=== PATIENT | female | born 1985 | race Caucasian/White ===

== ENCOUNTER 2020-10-20 19:40 | Emergency (ER) | payer OTHER, SELFPAY ==
[2020-10-20 19:57] VITALS: BP 146/96; PULSE 100; RESP 17; TEMP 36.4; O2SAT 100
--- NOTE | 2020-10-20 20:37 | ED.URI ---
HPI - URI/Sore Throat General Chief Complaint: Upper Respiratory Infection Stated Complaint: earache, ST Time Seen by Provider: 10/20/20 20:14 Source: patient Mode of arrival: ambulatory Limitations: no limitations History of Present Illness HPI Narrative: Patient is a 35-year-old female who presents complaining of sore throat and bilateral ear pain x2 to 3 days. She reports her right ear is more painful than left. She denies taking sztn-dvu-fnacylp medications for pain. She denies fever, cough, congestion, rhinorrhea, chills or body aches. She denies known exposure to Covid. She is not vaccinated Covid at this time. Patient denies chest pain or shortness of breath. Related Data Allergies Allergy/AdvReac Type Severity Reaction Status Date / Time aspirin Allergy Unknown Verified 02/23/15 16:08 strawberry Allergy Unknown Unverified 02/23/15 16:08 Review of Systems Review of Systems: Narrative: CONSTITUTIONAL: Denies fever, chills, or sweats. EYES: Denies visual changes, redness, or discharge. ENT: Denies rhinorrhea, congestion, reports sore throat and otalgia. CARDIOVASCULAR: Denies chest pain, palpitations, or edema. RESPIRATORY: Denies cough or dyspnea. GASTROINTESTINAL: Denies abdominal pain, nausea, vomiting, or diarrhea. GENITOURINARY: Denies dysuria or hematuria. SKIN: Denies rash or itching. MUSCULOSKELETAL: Denies back pain, joint pain, or myalgia. NEUROLOGIC: Denies headache, numbness, dizziness, or weakness. PSYCHIATRIC: Denies anxiety or depression. [facility] Past Medical History Medical History Asthma Bronchitis Gastrointestinal ulcer Surgical History Surgical History H/O: Family History Family History (Updated 10/20/20 @ 20:39 by CHRISTINA Wood) Other No significant family history Social History Social History (Updated 10/20/20 @ 20:41 by CHRISTINA Wood) Smoking status: Never smoker Alcohol intake: current Alcohol use details: Occasional Substance use: never Living arrangements: with family Gender identity (if verbalized by the patient): Female Exam Narrative: Exam Narrative: GENERAL: Well-appearing, well-nourished, and in no acute distress. HEAD: Normocephalic, atraumatic. EYES: EOMI. No redness or drainage. Conjunctiva are normal. ENT: Mucous membranes pink and moist. Nares clear. No rhinorrhea. Left TM normal, right TM bulging and injected. Throat mild erythema without edema or exudate. Uvula midline. NECK: AROM. Supple. No lymphadenopathy. CHEST: No respiratory distress. Clear to auscultation. HEART: Regular rate and rhythm. EXTREMITIES: Normal range of motion. No edema. SKIN: Warm, dry, no rash. NEURO: No focal deficits. Alert and oriented x3. Gait steady. PSYCH: Normal affect. No signs of depression or anxiety. Course Vital Signs Vital signs: Vital Signs Temperature 36.4 C 10/20/20 19:57 Pulse Rate 100 10/20/20 19:57 Respiratory Rate 17 10/20/20 19:57 Blood Pressure 146/96 H 10/20/20 19:57 Pulse Oximetry 10/20/20 19:57 Temperature 36.4 C 10/20/20 19:57 Pulse Rate 100 10/20/20 19:57 Respiratory Rate 17 10/20/20 19:57 Blood Pressure 146/96 H 10/20/20 19:57 Pulse Oximetry 100 10/20/20 19:57 Reviewed-patient is informed that they may have pre-hypertension or hypertension based on a blood pressure reading. I recommend the patient call the primary care provider listed on their discharge instructions or a physician of their choice this week to arrange follow-up for further evaluation of possible pre-hypertension or hypertension. MDM - URI/Sore Throat MDM Narrative Medical decision making narrative: Patient has right otitis media. Discussed with patient antibiotic treatment. Discussed pain relief. Discussed follow-up with PCP. Patient agrees with plan of care. Patient is stable for discha
[2020-10-20 21:09] VITALS: BP 148/86; PULSE 84; RESP 16; TEMP 36.3; O2SAT 98
== END 2020-10-20 21:10 | disposition home or self-care (01) ==
PROVIDERS: Emergency Provider Nurse Practitioner
DX: H66.91 Otitis media, unspecified, right ear (principal); J45.909 Unspecified asthma, uncomplicated
CPT/HCPCS: 87880; 99283

== ENCOUNTER 2020-11-24 17:35 | Emergency (ER) | payer OTHER, SELFPAY ==
--- NOTE | ~2020-11-24 | XR_ITS ---
EXAMINATION: XR knee RT min 4V EXAM DATE: 11/24/2020 17:57 INDICATION: Initial encounter following injury, with pain of the right knee. TECHNIQUE: Right knee frontal, crosstable lateral, orthogonal oblique projections for interpretation . There is no prior study for comparison. FINDINGS: No evidence osteochondral defect or joint body in the right knee joint. There are no acut e fractures or dislocations identified. There is no subcutaneous gas. There is small joint effusion . There is very thin needlelike foreign body in the right calf subcutaneous fat or musculature. The re is mild to moderate medial tibiofemoral compartment primary osteoarthritis, less at the other comp artments. IMPRESSION: 1. XR knee RT min 4V exam without acute osseous findings. 2. Small needlelike foreign body right calf. 3. Small joint effusion. 4. Mild to moderate osteoarthritis. Reviewed, dictated and finalized at location A.
[2020-11-24 18:17] VITALS: BP 108/87; PULSE 67; RESP 16; TEMP 36.7; O2SAT 99
--- NOTE | 2020-11-24 20:14 | ED.LOWEXIN ---
HPI - Extremity Injury (Lower) General Chief Complaint: Extremity Injury, Lower Stated Complaint: R KNEE PAIN S/P FALL OFF STEPSTOOL Time Seen by Provider: 11/24/20 19:34 Source: patient Mode of arrival: ambulatory Limitations: no limitations History of Present Illness HPI Narrative: This is a 35 year old female that presents to the ER for right knee pain after an injury today. Reports she was on a two-step step ladder. She was stepping off and missed the bottom step. Reports this caused pain in the right knee and she felt a pop in the knee. Reports pain to the area since. Denies decreased ROM or numbness. Related Data Allergies Allergy/AdvReac Type Severity Reaction Status Date / Time strawberry Allergy Unknown Anaphylactic Unverified 11/24/20 18:57 Shock bee venom protein (honey bee) Allergy Anaphylactic Verified 11/24/20 18:57 Shock aspirin AdvReac Unknown Gastrointestinal Verified 11/24/20 18:57 Upset Review of Systems Review of Systems: Narrative: CONSTITUTIONAL: Denies fever MUSCULOSKELETAL: Reports joint pain, and myalgia. NEUROLOGIC: Denies numbness, or weakness. All systems reviewed & are unremarkable except as noted in HPI and below PMFSH Past Medical History Medical History Asthma Bronchitis Gastrointestinal ulcer Surgical History Surgical History H/O: Family History Family History (Updated 10/20/20 @ 20:39 by CHRISTINA Wood) Other No significant family history Social History Social History (Updated 10/20/20 @ 20:41 by CHRISTINA Wood) Smoking status: Never smoker Alcohol intake: current Alcohol use details: Occasional Substance use: never Gender identity (if verbalized by the patient): Female Exam Narrative: Exam Narrative: GENERAL: Well-appearing, well-nourished, and in no acute distress. HEAD: Normocephalic, atraumatic. EYES: EOMI. EXTREMITIES: Normal range of motion. No edema, erythema or obvious deformity. Normal DP pulses. Normal sensation SKIN: Warm, dry, no rash. NEURO: No focal deficits. Alert and oriented x3. PSYCH: Normal mood and affect Course Vital Signs Vital signs: Vital Signs Temperature 98.1 F 11/24/20 18:17 Pulse Rate 67 11/24/20 18:17 Respiratory Rate 16 11/24/20 18:17 Blood Pressure 108/87 11/24/20 18:17 Pulse Oximetry 99 11/24/20 18:17 Temperature 98.1 F 11/24/20 18:17 Pulse Rate 67 11/24/20 18:17 Respiratory Rate 16 11/24/20 18:17 Blood Pressure 108/87 11/24/20 18:17 Pulse Oximetry 99 11/24/20 18:17 MDM - Extremity Injury (Lower) MDM Narrative Medical decision making narrative: Patient presents the emergency department for right knee pain after an injury today. Reports feeling a pop in the knee. Right knee x-rays without acute osseous abnormalities. Does show small joint effusion. She has a small needlelike foreign body in the right calf. There is no laceration to this area. There is no overlying redness of the area. Patient was updated on case findings. Instructed on care of the sprain. She is to follow-up with orthopedics. She was given warnings to return to the ER Imaging Data Radiologist's impression: ITS Impressions Knee X-Ray 11/24/20 18:00 IMPRESSION: 1. XR knee RT min 4V exam without acute osseous findings. 2. Small needlelike foreign body right calf. 3. Small joint effusion. 4. Mild to moderate osteoarthritis. Critical Care Time Critical Care Time Critical Care Time: No Discharge Plan Discharge Clinical Impression: Right knee sprain Qualifiers: Encounter type: initial encounter Involved ligament of knee: unspecified ligament Qualified Code(s): S83.91XA - Sprain of unspecified site of right knee, initial encounter Patient Disposition: Home, Self-Care Condition: Stable Instructions: Knee Sprain (ED)
[2020-11-24 21:25] VITALS: BP 115/83; PULSE 74; RESP 16; O2SAT 100
== END 2020-11-24 21:26 | disposition home or self-care (01) ==
PROVIDERS: Emergency Provider Emergency Medicine
DX: S83.91XA Sprain of unspecified site of right knee, initial encounter (principal); W11.XXXA Fall on and from ladder, initial encounter
CPT/HCPCS: 73564; 99283

== ENCOUNTER 2021-01-17 11:20 | Emergency (ER) | payer OTHER, SELFPAY ==
[2021-01-17 11:29] VITALS: BP 154/86; PULSE 64; RESP 16; TEMP 36.2; O2SAT 100
--- NOTE | 2021-01-17 11:39 | ED.EAR ---
HPI - Ear Problem General Chief complaint: Ear Stated complaint: ear pain Time Seen by Provider: 01/17/21 11:31 Source: patient and RN notes reviewed Mode of arrival: ambulatory Limitations: no limitations History of Present Illness HPI Narrative: Patient presents today with a 1 week history of right ear pain. Denies decreased hearing, drainage, cough, congestion, rhinorrhea, sore throat, fever. She currently rates her pain 6/10 and has been taking Tylenol and Aleve with some relief. She has also been using jpve-dia-kexbvuz eardrops and sweet oil topically without much relief. MD Complaint: ear pain Related Data Allergies Allergy/AdvReac Type Severity Reaction Status Date / Time strawberry Allergy Unknown Anaphylactic Unverified 11/24/20 18:57 Shock bee venom protein (honey bee) Allergy Anaphylactic Verified 11/24/20 18:57 Shock aspirin AdvReac Unknown Gastrointestinal Verified 11/24/20 18:57 Upset Review of Systems Review of Systems: CONSTITUTIONAL: Denies body aches, fever, chills, or sweats. EYES: Denies visual changes, redness, or discharge. ENT: Denies rhinorrhea, congestion, sore throat. + Right ear pain CARDIOVASCULAR: Denies chest pain, palpitations, or edema. RESPIRATORY: Denies cough or dyspnea. GASTROINTESTINAL: Denies abdominal pain, nausea, vomiting, or diarrhea. GENITOURINARY: Denies dysuria or hematuria. SKIN: Denies rash, itching, or wounds. MUSCULOSKELETAL: Denies back pain, joint pain, or myalgia. NEUROLOGIC: Denies headache, numbness, tingling, or weakness. PSYCH: Denies depression or anxiety. [facility] Past Medical History Medical History Asthma Bronchitis Gastrointestinal ulcer Surgical History Surgical History H/O: Family History Family History Other No significant family history Social History Social History Smoking status: Never smoker Alcohol intake: current Alcohol use details: Occasional Substance use: never Gender identity (if verbalized by the patient): Female Comments At time of signature, I have reviewed and agree with nursing past medical, surgical, social and family history unless otherwise noted. Please see nursing chart for further information. There is no relevant family history pertinent to the presenting complaint Exam Narrative: GENERAL: Well-appearing, well-nourished, and in no acute distress. HEAD: Normocephalic, atraumatic. EYES: EOMI. No redness or drainage. Conjunctivae normal. ENT: Mucous membranes pink and moist. Nares clear. No rhinorrhea. TMs normal bilaterally. Throat normal. Uvula midline. NECK: Normal AROM. Supple. No lymphadenopathy. CHEST: No respiratory distress. Clear to auscultation. HEART: Regular rate and rhythm. No murmur appreciated. Normal peripheral pulses. EXTREMITIES: Normal range of motion. No edema. SKIN: Warm, dry, no rash. Capillary refill normal. Normal skin turgor. NEURO: No focal deficits. Alert and oriented x3. Gait steady. PSYCH: Normal affect. No signs of depression or anxiety. Course Vital Signs Vital signs: Vital Signs Temperature 97.2 F L 01/17/21 11:29 Pulse Rate 64 01/17/21 11:29 Respiratory Rate 16 01/17/21 11:29 Blood Pressure 154/86 H 01/17/21 11:29 Pulse Oximetry 100 01/17/21 11:29 Temperature 97.2 F L 01/17/21 11:29 Pulse Rate 64 01/17/21 11:29 Respiratory Rate 16 01/17/21 11:29 Blood Pressure 154/86 H 01/17/21 11:29 Pulse Oximetry 100 01/17/21 11:29 Reviewed. Pt has been instructed to follow up with her PCP regarding her elevated blood pressure today. Medical Decision Making Differential Diagnosis Differential Diagnosis: Otitis media, otitis externa, ruptured TM, serous otitis, eustachian tube
== END 2021-01-17 12:02 | disposition home or self-care (01) ==
PROVIDERS: Emergency Provider Nurse Practitioner
DX: H69.91 Unspecified Eustachian tube disorder, right ear (principal); J45.909 Unspecified asthma, uncomplicated
CPT/HCPCS: 99211; G0463

== ENCOUNTER 2022-02-18 09:00 | Outpatient (CLI) | payer OTHER, SELFPAY ==
[2022-02-18 09:27] LABS: Basophils Percent Auto 0.4 % (0.2-1.2); Eosinophils Absolute Auto 0.3 K/mm3 (0-0.3); Eosinophils Percent Auto 3.9 % (0-4.4); Hematocrit 37.8 % (37.0-47.0); Hemoglobin 12.2 g/dL (12.0-15.0); Immature Granulocyte Absolute 0.04 K/mm3 (0.00-0.031); Immature Granulocyte Percent A 0.5 % (0-0.5); Lymphocytes Absolute Auto 1.27 K/mm3 (0.9-3.2); Lymphocytes Percent Auto 17.3 % (18.3-44.2); Mean Corpuscular HGB Conc 32.3 g/dl (32-36); Mean Corpuscular Hemoglobin 28.7 pg (26-34); Mean Corpuscular Volume 88.9 fl (80-100); Monocytes Absolute Auto 0.5 K/mm3 (0.1-0.6); Monocytes Percent Auto 6.7 % (2.6-8.5); Neutrophils Absolute Auto 5.2 K/mm3 (1.3-6.7); Neutrophils Percent Auto 71.2 % (45.5-73.1); Platelet Count Result 337 k/mm3 (150-375); Red Blood Count 4.25 M/mm3 (4.2-5.4); Red Cell Distribution Width 13.7 % (11.5-14.5); White Blood Count 7.4 K/mm3 (4.5-10.0)
[2022-02-18 10:38] LABS: Vitamin D 25 Hydroxy 25.6 ng/mL
[2022-02-18 10:53] LABS: Alanine Aminotransferase 18 U/L (6-35); Albumin Level 4.2 g/dL (3.5-5.1); Alkaline Phosphatase 71 U/L (38-126); Anion Gap 10 mmol/L (8-16); Aspartate Amino Transferase 23 U/L (14-36); Bilirubin,Total 0.1 mg/dL (0.2-1.3); Blood Urea Nitrogen 11 mg/dL (7-17); Calcium 8.7 mg/dL (8.4-10.2); Carbon Dioxide 24 mmol/L (22-30); Chloride 106 mmol/L (98-107); Cholesterol 112 mg/dL (0-200); Estimated Glomerular Filt Rate > 60; Glucose 94 mg/dL (65-110); HDL Direct 34 mg/dL; Sodium 140 mmol/L (137-145); Triglycerides 57 mg/dL (<150)
[2022-02-18 11:04] LABS: LDL Cholesterol Direct 59 mg/dL
[2022-02-18 11:34] LABS: Hemoglobin A1C 5.5 % (<5.7)
[2022-02-18 12:20] LABS: Folic Acid 4.1 ng/mL (2.76->20)
[2022-02-21 05:27] LABS: Progesterone 0.4 ng/mL (***)
[2022-02-22 18:24] LABS: Testosterone Free 3.5 pg/mL (0.1-6.4); Testosterone Total 35 ng/dL (2-45)
[2022-02-24 22:36] LABS: Estradiol, Ultrasensitive 71 pg/mL
== END 2022-02-18 09:01 | disposition home or self-care (01) ==
LOC: ANHLAB 09:02
PROVIDERS: Visit Provider Obstetrics & Gynecology
DX: Z00.00 Encounter for general adult medical examination without abnormal findings (principal); E66.9 Obesity, unspecified; N92.6 Irregular menstruation, unspecified
CPT/HCPCS: 36415; 80053; 80061; 82306; 82607; 82670; 82746; 83036; 83498; 84144; 84402; 84403; 85025

== ENCOUNTER 2024-07-17 11:16 | Outpatient (CLI) | payer OTHER, SELFPAY ==
[2024-07-17 13:26] LABS: Hematocrit 41.5 % (37.0-47.0); Hemoglobin 13.1 g/dL (12.0-15.0); Mean Corpuscular HGB Conc 31.6 g/dl (32-36); Mean Corpuscular Hemoglobin 28.1 pg (26-34); Mean Corpuscular Volume 88.9 fl (80-100); Mean Platelet Volume 9.8 fl (7.4-10.4); Platelet Count Result 363 k/mm3 (150-375); Red Blood Count 4.67 M/mm3 (4.2-5.4); Red Cell Distribution Width 14.6 % (11.5-14.5); White Blood Count 7.9 K/mm3 (4.5-10.0)
[2024-07-17 13:51] LABS: Alanine Aminotransferase 27 U/L (6-35); Albumin Level 4.5 g/dL (3.5-5.1); Alkaline Phosphatase 67 U/L (38-126); Anion Gap 10 mmol/L (4-12); Aspartate Amino Transferase 40 U/L (14-36); Bilirubin,Total 0.4 mg/dL (0.2-1.3); Blood Urea Nitrogen 18 mg/dL (7-17); Calcium 9.2 mg/dL (8.4-10.2); Carbon Dioxide 26 mmol/L (22-30); Chloride 104 mmol/L (98-107); Cholesterol 118 mg/dL (0-200); Estimated Glomerular Filt Rate > 60; Glucose 91 mg/dL (65-110); HDL Direct 36 mg/dL; Potassium 4.5 mmol/L (3.4-5.0); Sodium 140 mmol/L (137-145); Triglycerides 91 mg/dL (<150)
[2024-07-17 14:02] LABS: LDL Cholesterol Direct 47 mg/dL
[2024-07-17 14:18] LABS: Thyroid Stimulating Hormone 0.821 uIU/mL (0.465-4.680)
== END 2024-07-17 11:17 | disposition home or self-care (01) ==
LOC: ANHGOSHLAB 11:17
PROVIDERS: PCP Family Medicine; Visit Provider Family Medicine
DX: F41.9 Anxiety disorder, unspecified (principal); E66.9 Obesity, unspecified; E55.9 Vitamin D deficiency, unspecified; Z79.899 Other long term (current) drug therapy
CPT/HCPCS: 36415; 80053; 80061; 82652; 84443; 85027

== ENCOUNTER 2024-08-16 10:14 | Outpatient (CLI) | payer OTHER, SELFPAY ==
--- NOTE | ~2024-08-16 | US_ITS ---
Limited Abdominal Sonogram: Real-time sonographic imaging of the right upper quadrant was performed. Clinical History: Epigastric pain Findings: The liver appears echogenic with no evidence of mass lesion or bile duct dilatation. Main portal vein demonstrates normal direction of flow. The gallbladder is filled with shadowing gallstone s. The common bile duct measures 5 mm. The visualized pancreas, aorta, and IVC are unremarkable. Impression: Diffuse fatty infiltration of the liver. Cholelithiasis. Reviewed, dictated and finalized at location M. Impression: Diffuse fatty infiltration of the liver. Cholelithiasis.
--- OUTSIDE RECORDS SUMMARY | 2024-08-16 11:01 | XMS_ITS | Encounter Summary ---
Author Organization [facility] Health Address [address] [facility] [place] [address] Care Team Providers Care Flight Radio Operator Name Role Phone Martha Harry Primary Care Provider [phone]- [phone] Reason for Visit * Reason Onset Date Comments MEDICATION REFILL 02/28/2022 Encounter Details Date Type Department Care Team (Late st Contact Info) Description 02/28/2022 Refill [facility] [address] [place] [address], [place] [phone] Omid Hutson III, MD [address] [place] [phone] MEDICATION REFILL Social History Tobacco Use Types Packs/Day Years Used Date Smoking Tobacco: Never Smokeless Tobacco: Never Alcohol Use Standard Drinks/Week Comments Yes 0 (1 standard drink = 0.6 oz pur e alcohol) PHQ-2 Answer Date Recorded PHQ2 TOTAL SCORE 0 10/30/2020 Sex and Gender Information Value Date Recorded Sex Assigned at Not on file Gender Identity Not on file Sexual Orientation Not on file documented as of this encounter Plan of Treatment Not on file documented as of this encounter Visit Diagnoses Diagnosis SOB (shortness of breath) Shortness of breath documented in this encounter Care Teams Flight Radio Operator Relationship Specialty Start Date End Date Martha Harry APRN-CNP [address] [place] [phone] PCP - General 07/01/21 documented as of this encounter
--- OUTSIDE RECORDS SUMMARY | 2024-08-16 11:01 | XMS_ITS | Encounter Summary ---
Author Organization [facility] Address [address] [place] [place] [address] Care Team Providers Care Horticultural Agent Name Role Phone Yonas Garcia Primary Care Provide r Martha Harry APRNIRAM Primary Care Provider [phone]- [phone] Reason for Visit * Reason Onset Date Comments MEDICATION REFILL 11/02/2020 Encounter Details Date Type Department Care Team (Late st Contact Info) Description 11/02/2020 Refill [facility] [address] [facility] [place] [phone] Yonas Garcia APRN-CNP [address] [place] [phone] MEDICATION REFILL Social History Tobacco Use Types [...] on file Sexual Orientation Not on file COVID-19 Exposure Response Date Recorded In the last month, have you been in contact with someone who was confirmed or suspected to have Coronavirus / COVID-19? No / Unsure 10/30/2020 8:16 AM CDT documented as of this encounter Plan of Treatment Not on file documented as of this encounter Visit Diagnoses Diagnosis SOB (shortness of breath) Shortness of breath documented in this encounter Care Teams Horticultural Agent Relationship Specialty Start Date End Date Yonas Garcia APRN-CNP PCP - General Internal Medicine 08/27/19 06/30/21 Martha Harry APRN-CNP [address] [place] [address] PCP - General 07/01/21 documented as of this encounter
--- OUTSIDE RECORDS SUMMARY | 2024-08-16 11:01 | XMS_ITS | Encounter Summary ---
Author Organization [facility] Address [address] [facility] [place] [address] Care Team Providers Care S3B Multi Sensor Operator Name Role Phone Martha Harry Primary Care Provider +1- [phone] Reason for Visit * Reason Onset Date Comments MEDICATION REFILL 10/05/2021 Encounter Details Date Type Department Care Team (Late st Contact Info) Description 10/05/2021 Refill [facility] [address] [place] [address] Jaswinder Gavin MD [address] [address] MEDICATION REFILL Social History Tobacco Use Types [...] as of this encounter Visit Diagnoses Diagnosis PLMD (periodic limb movement disorder) Periodic limb movement disorder documented in this encounter Care Teams S3B Multi Sensor Operator Relationship Specialty Start Date End Date Martha Harry APRN-CNP [address] [place] [phone] PCP - General 07/01/21 documented as of this encounter
--- OUTSIDE RECORDS SUMMARY | 2024-08-16 11:01 | XMS_ITS | Encounter Summary ---
Author Organization [facility] Health Address [address] [facility] [place] [address] Care Team Providers Care Quill Layer Name Role Phone Martha Harry COLD MEAT COOK-FISH ROD MAKER Primary Care Provider +1- [phone] Reason for Visit * Reason Onset Date Comments MEDICATION REFILL 10/05/2021 Encounter Details Date Type Department Care Team (Late st Contact Info) Description 10/05/2021 Refill [facility] [address] [facility] [place] [phone] Sonia Yi MD [address] [place] [phone] MEDICATION REFILL Social History Tobacco Use Types [...] on file documented as of this encounter Miscellaneous Notes * Telephone Encounter - Mary Jo Carmona RN - 10/06/2021 9:21 AM CDT Refill Request Mckenna Laura JOSE: 10/30/20 NOV scheduled: 10/05/2021 LRF: 08/31/21 Qty Disp: 10.2 # of refills: 2 Allergies: Allergies Allergen Reactions ??? [place] Anaphylaxis Pended Medication Order: Requested Prescriptions Pending Prescriptions Disp Refills ??? budesonide-formoterol (SYMBICORT) 80-4.5 MCG/ACT inhaler 10.2 g 2 Sig: Inhale 2 (two) puffs by mouth 2 times daily documented in this encounter Plan of Treatment Not on file documented as of this encounter Visit Diagnoses Diagnosis Chronic obstructive pulmonary disease, unspecified COPD type (HCC) documented in this encounter Care Teams Quill Layer Relationship Specialty Start Date End Date Martha Harry APRN-FISH ROD MAKER [address] [place] [phone] PCP - General 07/01/21 documented as of this encounter
--- OUTSIDE RECORDS SUMMARY | 2024-08-16 11:01 | XMS_ITS | Encounter Summary ---
Author Organization [facility] Address [address] [facility] [place] [address] Care Team Providers Care Rn Lab Name Role Phone Martha Harry Primary Care Provider +1- [phone] Reason for Visit * Reason Onset Date Comments MEDICATION REFILL 02/28/2022 Encounter Details Date Type Department Care Team (Late st Contact Info) Description 02/28/2022 Refill [facility] [address] [place] [address], [place] [phone] Omid Hutson III, MD [address] [place] [phone] MEDICATION REFILL Social History Tobacco Use Types [...] (HCC) documented in this encounter Care Teams Rn Lab Relationship Specialty Start Date End Date Martha Harry APRN-CNP [address] [place] [phone] PCP - General 07/01/21 documented as of this encounter
--- OUTSIDE RECORDS SUMMARY | 2024-08-16 11:01 | XMS_ITS | Data Portability ---
Author Organization [place] [facility], Main Office Address [address] [place] [address] Care Team Providers Care Rig Manager Name Role Phone REDDY DIGGS Primary Care Provider [phone] HOPREDDY KAUFMAN Referring Provider [phone] Assessment Encounter Date Assessment Date Assessment LastModified by Organization Details LastModified Time 01/28/2023 01/28/2023 37-year-old patient presents today for 3rd postop follow-up after right carpal and cubital tunnel release on 12/23/[address] Desai. She is no longer taking medications for pain. She has finished her course of anti-biotics. She states her carpal tunnel incision is slubber tender to the touch and the tenderness has traveled towards her ring finger. She denies any drainage. physical exam: Incision at elbow clean dry and intact. No signs of infection. Minimal pain with palpitation around the area. Sensation intact. Incision at the wrist clean dry and intact. No drainage noted. Redness around the border of the incision. Tenderness with palpitation around the incision as well as tightness of the skin. Pain tracks distally and up the ring finger, which is new since her last appointment. Sensation intact throughout. We discussed that she may need one more course of antibiotics to be sure she is clear of infection. We will see her back next week to recheck her incision. We discussed proper wound care for both incisions and that she should call if any of her symptoms worsen or new ones arise. Not available 01/28/2023 14:49:04 02/02/2023 02/02/2023 37-year-old female presenting for follow-up status post right cubital tunnel release and carpal tunnel release. That was done on 12/23/2022. At her previous visits, she was having some erythema around the surgical wound, with tenderness in the area. At her 1st postop visit, she reports she she had some drainage, but has not had any since. Currently, she reports her wrist is feeling better and she is having less pain. She currently rates as 2/10. She is not having issues with her elbow incision or wound. She is on a course of oral Keflex. She has a slight amount of erythema around the carpal tunnel wound. It is clean dry and intact, without any bleeding or drainage. She has no tenderness extending proximally distally from the wound. She is able to fully flex and extend her fingers without difficulty. She has sensation intact to light touch, brisk cap refill, 2+ radial pulse. Her incision seems fine today, and she reports feeling better compared to where she was immediately postoperativel y. We will keep a close eye on wrist. She should finish the course of her antibiotics. We will see her back in 1 week. We discussed that if she does develop increasing swelling, erythema, or pain, or notices any drainage or bleeding from the wound, she should let us know immediately. She stated understanding. Not available 02/05/2023 18:43:52 02/09/2023 02/09/2023 37-year-old female presents for follow-up status post carpal tunnel release and cubital tunnel release on 12/23/2022. She reports she is doing well. She had previously been on a course of antibiotics for some cellulitis. The erythema has resolved. She does not have any swelling. Minimal pain, is 1/10. Her numbness and tingling in the fingers have resolved. wrist incision is clean dry intact without erythema, bleeding, other signs of infection. She has no tenderness around the surgical site or anywhere else in the hand or fingers. She has full extension and flexion of her fingers without discomfort. Sensation intact throughout the fingers, 2+ radial pulse. Her elbow incision is clean dry intact. She had a previous area of scabbing near the center of her incision which has healed over. No erythema, drainage, or other signs of infection. No tenderness around the elbow site. At this point she is progressing well. She may continue to be activities as tolerated. We will have her follow-up in 1 month. If she does have any new onset of pain, swelling, or erythema, she should call and let us know immediately. She is in agreement with plan, all questions and concerns were addressed. Not available 02/10/2023 11:03:40 2023 2023 38-year-old female presents for follow-up of her right wrist and right elbow. She is status post carpal and cubital tunnel release on 12/23/2022. Overall she is doing well, minimal pain. She reports some occasional sensitivity around the surgical site. Both incision sites are clean dry intact without bleeding drainage erythema or other signs of infection. She does have some sensitivity to light touch around the wrist. There is no tenderness around the surgical site or extending distally into the hand or fingers. She reports numbness and tingling she had previously has improved. She is able to flex and extend her fingers without difficulty. She has good range of motion of the elbow, no tenderness around the surgical site at the elbow. Overall she is progressing well. With regards his sensitivity, she should continue to desensitize it when it does occur. We will have her follow-up in 2-3 months for 1 more recheck. She may be activities as tolerated, call with any questions or concerns. Not available 2023 14:57:38 05/25/2023 05/25/2023 38-year-old female presents for follow-up of her right wrist and right elbow. She is status post carpal and cubital tunnel release on 12/23/2022. Overall she is doing well, No pain. Both incision sites are well healed. No numbness or tingling. Good ROM in wrist and elbow. Overall she has progressed well. At this time she can be released from us. She can continue to be activities as tolerated, call with any questions or concerns. She is in agreement with this plan. Not available 05/25/2023 09:35:30 Plan of Treatment Reminders Order Date Submit Date Provider Last Modified By Organization Details Last Modified Time Details Appointments None recorded. Lab None recorded. Referral None recorded. Procedures None recorded. Surgeries None recorded. Imaging None recorded. Medication Orders Keflex 500 mg capsule 023 023 [facility] [employer] [facility][id number], [address], [place], [place], [id number], 09/23/202 3 18:38:33 Keflex 500 mg capsule 023 023 [email or web address] [facility] [facility][id number], [address], [place], [place], [id number], 3 14:49:43 Patient TargetsNo targets recorded. Patient InstructionsNo instructions recorded. Reason for Referral None Reported. Problems Name Problem SNOMED Code Status Onset Date Resolution Date Notes Provider Name and Address Organization Details Recorded Time Vitamin D deficiency 26461267 Active 2021 Not Available [facility] 3 01:54:28 Sleep apnea 00185940 Active 2022 KELLE Beebe [address], [place], [address] , [employer] 3 20:29:40 Restless legs 95101738 Active 2022 KELLE Beebe [address], [place], [address] , [employer] 3 20:30:02 Asthma 503404722 Active 2022 KELLE Beebe [address], [place], [address] , [employer] 3 20:30:07 Carpal tunnel syndrome of right wrist 4790615307096 08 Active 2022 KELLE Beebe [address], [address], [place], [address] , [employer] 3 20:30:18 Hidradenit is suppurativ a 13374705 Active 2022 KELLE Beebe [address], [place], [address] , [employer] 3 20:30:36 Morbid obesity 477938385 Active 2022 KELLE Beebe [address], [employer] [employer] [place], [address] , [facility] 3 20:31:24 Obesity 107555919 Active 2022 KELLE Beebe [address], [address], [address] , [facility] 3 20:31:39 Cobalamin deficiency 743334708 Active 2022 KELLE Beebe [address], [address], [address] , [facility] 3 20:32:04 Anemia 207438264 Active 2022 KELLE Beebe [address], [address], [address] , [facility] 3 20:32:11 Hyperlipid emia 54465989 Active 2022 KELLE Beebe [address], [address], [address] , [facility] 3 20:32:22 Pain in both feet 5805863761658 9102 Active 2022 KELLE Beebe [address], [address], [address] , [facility] 3 20:33:32 Ulnar nerve entrapment at elbow 774356372 Active 2022 Erik Desai MD [address], [place] [address], [place], [address] , [facility] 3 09:24:18 Ulnar nerve entrapment at elbow 589717089 Active 2022 ROME Tovar, [facility] 3 09:19:14 Bilateral carpal tunnel syndrome 8288348721492 9101 Active 2022 ROME Tovar, [facility] 3 09:19:22 Problem Notes None recorded. Procedures Surgical History Date Name Laterality Status Provider Name and Address Organization Details Recorded Time delivery completed Not Available [facility] 07/15/2022 01:54:04 Imaging Results None recorded. Procedure Notes None recorded. Medical Equipment None Reported. Allergies Allergen ID Allergen Name Allergen Category Reaction Reaction Severity Criticality Documentation Date Start Date Code Code System Note Provider Name and Address Organization Details Recorded Time 43504 strawberr y allergeni c extract food anaphylax is Not available Not available 07/15/2022 26703 4 RxNorm Not Available [facility] 3 01:54:57 63797 aspirin medicatio n Not available Not available Not available 07/15/2022 1191 RxNorm Not Available [facility] 3 01:54:57 Medications Name Sig Start Date Stop Date Status Note LastModified by Organization Details LastModified Time hydrocodone 5 mg-acetamin ophen 325 mg tablet TAKE 1 TABLET BY MOUTH EVERY 6 HOURS NEEDED FOR PAIN. active Not Available Not Available No t Available Keflex 500 mg capsule Take 1 capsule every 6 hours by oral route. 2022 active Not Available Not Available Not Avai lable metronidazo le 500 mg tablet TAKE 1 TABLET BY MOUTH 1 TIME WITH FOOD 04/20 completed Not Available Not Available Not Available acetaminoph en 300 mg-codeine 30 mg tablet TAKE 1 TABLET BY MOUTH FOUR TIMES DAILY NEEDED active Not Available Not Available No t Available acyclovir 400 mg tablet TAKE 1 TABLET BY MOUTH DAILY active Not Available Not Available No t Available clindamycin 1 % topical gel Apply by topical route for 25 days. 05/03 completed Not Available Not Available Not Available Kenalog 10 mg/mL suspension for injection In office injection administe red by the provider active [facility]: 0003- 0494- 20 Not Available Not Available Not Available gabapentin 300 mg capsule TAKE 1 CAPSULE BY MOUTH AT BEDTIME active Not Available Not Available No t Available gabapentin 100 mg capsule TAKE 1 CAPSULE BY MOUTH AT BEDTIME 11/26 completed Not Available Not Available Not Available ergocalcife rol (vitamin D2) 1,250 mcg (50,000 unit) capsule TAKE 1 CAPSULE BY MOUTH EVERY WEEK 11/26 completed Not Available Not Available Not Available albuterol sulfate HFA 90 mcg/actuati on aerosol inhaler INHALE 2 PUFFS BY MOUTH EVERY 4 HOURS NEEDED active Not Available Not Available No t Available Symbicort 80 mcg-4.5 mcg/actuati on HFA aerosol inhaler INHALE 2 PUFFS BY MOUTH TWICE DAILY active Not Available Not Available No t Available ropivacaine (PF) 5 mg/mL (0.5 %) injection solution in office active [facility] 97172 -064- 01 Not Available Not Available Not Available 28 mg iron-800 mcg tablet TAKE 1 TABLET BY MOUTH EVERY DAY 05/03 completed Not Available Not Available Not Available ID NOW COVID-19 Test Kit TEST DIRECTED TODAY 04/20 completed Not Available Not Available Not Available Vitals Date Recorded Body height Body mass index (BMI) Body weight Provider Name and Address Organization Details Last Updated DateTime 01/28/2023 162.56 cm 54.2 kg/m2 384501.19 g ROME Tovar [employer] [facility] [employer] 01/28/2023 09:47:27 Date Recorded Body height Body mass index (BMI) Body weight Pain severity - 0-10 verbal numeric rating [Score] - Reported Provider Name and Address Organization Details Last Updated DateTime 02/02/2023 162.56 cm 54.2 kg/m2 111176.19 g 2 ROME Tovar [employer] [facility] 02/02/2023 08:35:01 Date Recorded Body height Body mass index (BMI) Body weight Pain severity - 0-10 verbal numeric rating [Score] - Reported Provider Name and Address Organization Details Last Updated DateTime 02/09/2023 162.56 cm 54.2 kg/m2 108645.19 g 1 ROME Tovar [employer] [facility] 02/09/2023 09:29:32 Date Recorded Body height Body mass index (BMI) Body weight Provider Name and Address Organization Details Last Updated DateTime 2023 162.56 cm 54.2 kg/m2 477987.19 g JOSE Magaña [employer] [facility] 2023 09:21:06 Date Recorded Body height Body mass index (BMI) Body weight Pain severity - 0-10 verbal numeric rating [Score] - Reported Provider Name and Address Organization Details Last Updated DateTime 05/25/2023 162.56 cm 54.2 kg/m2 813757.19 g 0 ROME Tovar [place] [facility] 05/25/2023 09:07:40 Social History Question Answer Notes LastModified by Organizat ion Details LastModified Time Tobacco Smoking Status Never Smoker Not Available [facility] [place] 07/15/2022 01:53:58 What Is Your Level Of Alcohol Consumption? Occasional [id number].[id number] Information not available 07/15/2022 What Is Your Level Of Caffeine Consumption? Moderate MIGRATION.14072 75789 Information not available 07/15/2022 In The 14 Days Before Symptom Onset, Have You Had Close Contact With A Laboratory-confir med COVID-19 While That Case Was Ill? No MIGRATION.11439 19921 Information not available 07/15/2022 In The 14 Days Before Symptom Onset, Have You Had Close Contact With A Person Who Is Under Investigation For COVID-19 While That Person Was Ill? No MIGRATION.90776 98060 Information not available 07/15/2022 What Type Of Diet Are You Following? REGULAR MIGRATION.07315 66438 Information not available 07/15/2022 What Is The Highest Grade Or Level Of School You Have Completed Or The Highest Degree You Have Received? 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 No MIGRATION.36170 13497 Information not available 07/15/2022 What Is The Fluoride Status Of Your Home? Unknown MIGRATION.46311 94229 Information not available 07/15/2022 Are There Any Guns Present In Your Home? No MIGRATION.85748 17179 Information not available 07/15/2022 Do You Use Insect Repellent Routinely? No MIGRATION.08633 16093 Information not available 07/15/2022 Where Do You Live? [place] MIGRATION.00273 38553 Information not available 07/15/2022 What Was The Date Of Your Most Recent Tobacco Screening? 11/26/2022 [email or web address] Information not available 11/26/2022 Do You Have Any Pets? Yes MIGRATION.55119 28306 Information not available 07/15/2022 What Is Your Relationship Status? MIGRATION.39958 40781 Information not available 07/15/2022 Do You Have Smoke And Carbon Monoxide Detectors In Your Home? Yes MIGRATION.23666 59240 Information not available 07/15/2022 Are You Passively Exposed To Smoke? No MIGRATION.97792 78836 Information not available 07/15/2022 Are There Any Smokers In Your House? No MIGRATION.66505 95585 Information not available 07/15/2022 Do You Feel Stressed (tense, Restless, Nervous, Or Anxious, Or Unable To Sleep At Night)? [id number] MIGRATION.67856 49712 Information not available 07/15/2022 Do You Use Sunscreen Routinely? No MIGRATION.06989 26251 Information not available 07/15/2022 Have You Recently Traveled Abroad? No MIGRATION.81649 57183 Information not available 07/15/2022 Do You Or Have You Ever Used Any Other Forms Of Tobacco Or Nicotine? No MIGRATION.61731 94045 Information not available 07/15/2022 Sex: Unknown Functional Status Question Answer Note LastModified by Organizat ion Details LastModified Time What is your exercise level? Heavy MIGRATION.[id number] Information not available 07/15/2022 Mental Status None recorded. Family History Relationship Description Onset Age of this Age Resolved Age Notes LastModified by Organization Details LastModified Time Mother Diabetes mellitus [id number] Not available 07/15/2022 01:54:06 Mother Leukemia MIGRATION.[id number] Not available 07/15/2022 01:54:06 Medical History Condition Response ARTHRITIS Y Gynecological HistoryNo gynecological history recorded. Obstetrics History GPAL:G 0 P 0 0 0 0 Immunizations Vaccine Type Date Status Note Provider Nam e and Address Organization Details Recorded Time SARS-COV-2 (COVID-19) vaccine, UNSPECIFIED 2 completed Not Available [facility] 07/15/2022 01:54:54 SARS-COV-2 (COVID-19) vaccine, UNSPECIFIED 2 completed Not Available [facility] 07/15/2022 01:54:54 Influenza, split virus, quadrivalent, PF 2 completed Not Available [facility] 07/15/2022 01:54:55 Past Encounters Encounter ID Performer Location Encounter Start Date Encounter Closed Date Diagnosis/Indication Diagnosis SNOMED-CT Code Diagnosis ICD10 Code Diagnosis Note [id number] [facility] Internal Med [facility] 15 [address] [facility], [address] [address] 04/20/2022 00:00:00 04/20/2022 17:20:22 [id number] [facility] [address] [address] 05/28/2022 00:00:00 05/28/2022 17:16:42 [id number] [facility] [place] [address] [place] [address] 07/13/2022 00:00:00 07/13/2022 17:47:15 [id number] CHRISTINA Beebe-Priscilla [facility] [address] [address] 11/26/2022 16:18:47 11/26/2022 16:49:31 Trying to conceive 679255455 Z31.9 on vitaminCon tinue to follow with OBGYN Sleep apnea 92572124 G47 .30 Follows sleep medicine- [facility]. Erlinda Cuenca at [facility] CPAP Restless legs 27573625 G 25.81 on gabapentin from Sleep Medicine Asthma 578134687 J45.90 9 On Symbicort- she is aware to rinse and spit after useOn albuterol p.r.n. Carpal lary amanuel syndrome of right wrist 7983981438 81444 G56.01 Get another appointmen t with Hand surgery- wants to discuss surgeryhas already had kenalog x1, is wearing brace at night Hidradenit is suppurativa 02203234 L73.2 On clindamyci n gel p.r.n. Obesity 836634530 E66.9 recommend healthy, well balanced mealsfocus on lean meats, fresh vegetables , fresh fruits, whole grainsredu ce fast/proce ssed foods or eating out to no more than 1-2 times per weekaim to get 30 min of exercise most days of the week- walking is a great choice Vitamin D deficiency 347 80312 E55.9 weekly supplement gives her nauseatry daily OTC supplement Cobalamin deficiency 190 775433 E53.8 on multivitam in Anemia 086738559 D64.9 mild, on multivitam in Hyperlipidemia 89793726 E78.5 mild, work on lifestyle measures [id number] Erik Desai MD [facility] [place] [address] [place] [address] 12/08/2022 14:25:32 12/08/2022 15:05:25 Carpal tunnel syndrome of right wrist 8918786451 57342 G56.01 Ulnar nerv e entrapment at elbow 587897772 G56.21 [id number] Erik Desai MD [facility] [place] [address] [place] [address] 01/05/2023 13:47:33 01/05/2023 14:11:44 Ulnar nerve entrapment at elbow 590693924 G56.21 Carpal lary amanuel syndrome of right wrist 9307060945 39732 G56.01 Postoperative visit 1836 19248 Z09 [id number] Taryn Cox NP [facility] [place] [address] [place] [address] 01/14/2023 09:16:42 01/14/2023 09:27:56 Ulnar nerve entrapment at elbow 628144959 G56.21 Bilateral carpal tunnel syndrome 6588380066 3729429 G56.01 Postoperative visit 1836 88450 Z09 [id number] Taryn Cox NP [facility] [place] [address] [place] [address] 01/28/2023 09:27:13 01/28/2023 10:34:37 Carpal tunnel syndrome of right wrist 8188554270 69332 G56.01 Ulnar nerv e entrapment at elbow 179759272 G56.21 [id number] Erik Desai MD [facility] [place] [address] [place] [address] 02/02/2023 08:32:01 02/02/2023 09:16:14 Ulnar nerve entrapment at elbow 016514372 G56.21 Bilateral carpal tunnel syndrome 8592498234 2570417 G56.01 [id number] Erik Desai MD [facility] [place] [address] [place] [address] 02/09/2023 09:21:19 02/09/2023 09:43:26 Ulnar nerve entrapment at elbow 820513711 G56.21 [id number] Erik Desai MD [facility] [place] [address] [place], [place] [address] 2023 09:16:31 2023 09:43:32 Ulnar nerve entrapment at elbow 816230029 G56.21 Carpal lary amanuel syndrome of right wrist 5323927144 46808 G56.01 [id number] Taryn Cox NP [facility] [place] [address] [place] [place] [address] 05/25/2023 09:05:28 05/25/2023 09:23:24 Ulnar nerve entrapment at elbow 114811973 G56.21 Carpal lary amanuel syndrome of right wrist 2903407282 72369 G56.01 Health Concerns Section Related Observation LastModified by Organization Detai ls LastModified Time None Recorded Concern Status LastModified by Organization Details LastModified Time None Recorded Advance Directives Directive None Recorded Payers Encounter Date Sequence Insurance Name Policy Number Policy Salazar Covered Member ID Salazar Member ID Guarantor Name 01/28/2023 1 [facility] [employer] ON OR AFTER 11/13/20 (MEDICAID REPLACEMENT - HMO) Mckenna Laura [id number] Mckenna Laura 02/02/2023 1 [facility] [employer] ON OR AFTER 11/13/20 (MEDICAID REPLACEMENT - HMO) Mckenna Laura [id number] Mckenna Laura 02/09/2023 1 [facility] [place] ON OR AFTER 20 (MEDICAID REPLACEMENT - HMO) Mckenna Laura [id number] Mckenna Laura 2023 1 [facility] - DOS ON OR AFTER 20 (MEDICAID REPLACEMENT - HMO) Mckenna Laura [id number] Mckenna Laura 05/25/2023 1 [facility] - DOS ON OR AFTER 20 (MEDICAID REPLACEMENT - HMO) Mckenna Laura [id number] Mckenna Keya OBGyn Episode No OBEpisode recorded.
--- OUTSIDE RECORDS SUMMARY | 2024-08-16 11:01 | XMS_ITS | Encounter Summary ---
Author Organization [facility] Health Address [address] [place] [address] Care Team Providers Care Top Steep Tender Name Role Phone Martha [facility] Primary Care Provider +1- [phone] Reason for Visit * Reason Onset Date Comments MEDICATION REFILL 10/05/2021 Encounter Details Date Type Department Care Team (Late st Contact Info) Description 10/05/2021 Refill [facility] [address] [facility], [facility] [place] [address] Martha [facility] [address] [place] [phone] MEDICATION REFILL Social History Tobacco Use Types [...] - Mary Jo Carmona RN - 10/06/2021 9:25 AM CDT Refill Request Mckenna Laura JOSE: 10/30/20 NOV scheduled: Visit date not found LRF: 07/01/21 Qty Disp: 18g # of refills: 0 Allergies: Allergies Allergen Reactions ??? Vaughn Anaphylaxis Pended Medication Order: Requested Prescriptions Pending Prescriptions Disp Refills ??? albuterol HFA (PROVENTIL; VENTOLIN; PROAIR) 108 (90 Base) MCG/ACT inhaler 18 g 0 Sig: Inhale 2 (two) puffs by mouth every 4 hours as needed for Wheezing documented in this encounter Plan of Treatment Not on file documented as of this encounter Visit Diagnoses Diagnosis SOB (shortness of breath) Shortness of breath documented in this encounter Care Teams Top Steep Tender Relationship Specialty Start Date End Date Martha Harry, COMMISSIONED SALES ASSOCIATE-RESISTANCE WELDING MACHINE OPERATOR [address] [place] [address] PCP - General 07/01/21 documented as of this encounter
--- OUTSIDE RECORDS SUMMARY | 2024-08-16 11:01 | XMS_ITS | Encounter Summary ---
Author Organization [facility] Address [address] [facility] [place] [address] Care Team Providers Care Rubber Turner Name Role Phone Martha Harry Primary Care Provider +1- [phone] Reason for Visit * Reason Onset Date Comments MEDICATION REFILL 01/09/2022 Encounter Details Date Type Department Care Team (Late st Contact Info) Description 01/09/2022 Refill [facility] [address] [place] [address], [place] [address] Omid Hutson III, MD [address] [place] [phone] MEDICATION REFILL Social History Tobacco Use Types [...] obstructive pulmonary disease, unspecified COPD type (HCC) SOB (shortness of breath) Shortness of breath documented in this encounter Care Teams Rubber Turner Relationship Specialty Start Date End Date Martha Harry APRN-CNP [address] [place] [phone] PCP - General 07/01/21 documented as of this encounter
--- OUTSIDE RECORDS SUMMARY | 2024-08-16 11:01 | XMS_ITS | Encounter Summary ---
Author Organization [facility] Address [address] [facility] [place] [address] Care Team Providers Care Supervisor Taping Name Role Phone Martha Harry Primary Care Provider +1- [phone] Reason for Visit * Reason Onset Date Comments MEDICATION REFILL 01/05/2022 Encounter Details Date Type Department Care Team (Late st Contact Info) Description 01/05/2022 Refill [facility] [address] [place] [address], [place] [phone] Omid Hutson III, MD [address] [place] [phone] MEDICATION REFILL Social History Tobacco Use Types [...] (HCC) documented in this encounter Care Teams Supervisor Taping Relationship Specialty Start Date End Date Martha Harry APRN-CNP [address] [place] [phone] PCP - General 07/01/21 documented as of this encounter
--- OUTSIDE RECORDS SUMMARY | 2024-08-16 11:01 | XMS_ITS | Clinical Summary ---
Author Organization [facility] [employer] Address [address] [facility] [place] [facility] [place] [address] Care Team Providers Care Residence Hall Director Name Role Phone Martha Harry REGINALD-TESTER ARMATURE OR FIELDS Primary Care Provider +1- [phone] [facility] [employer],non-owned Affiliates and Associated Physician Practices is amultiple site organization consisting of ambulatory clinics and hospital sitesin [place], [place], [place] and [place]. This disclosure is being madepursuant to the Care Everywhere program and may not contain all information available regarding this patient. Last updated 18.[facility] [employer] Allergies Active Allergy Reactions Criticality Noted Date Comments Patterson Anaphylaxis High 09/27/2018 Medications * Be aware that medications may not be up to date on this document. Alwaysverify current medications with the patient. Medication Sig Dispensed Refills Start Date End Date Status omeprazole (PRILOSEC) 40 MG capsule Take 1 (one) capsule by mouth 2 times daily 06/12/2020 Active fluticasone propionate (FLONASE) 50 MCG/ACT nasal spray [place] 2 (two) sprays into each nostril once daily Active budesonide-formoter ol (SYMBICORT) 80-4.5 MCG/ACT inhalerIndications: Chronic obstructive pulmonary disease, unspecified COPD type (HCC) Inhale 2 (two) puffs by mouth 2 times daily 10.2 g 11 10/06/2021 Active albuterol HFA (PROVENTIL; VENTOLIN; PROAIR) 108 (90 Base) MCG/ACT inhalerIndications: SOB (shortness of breath) Inhale 2 (two) puffs by mouth every 4 hours as needed for Wheezing 18 g 11 10/06/2021 Active gabapentin (Neurontin) 100 MG capsuleIndications: PLMD (periodic limb movement disorder) Take 1 (one) capsule by mouth at bedtime 90 capsule 3 02/01/2022 Active clindamycin (Cleocin) 1 % gel APPLY 1 APPLICATION TOPICALLY TWICE DAILY NEEDED FOR PUSTULES 04/17/2022 Active Vit-Fe Fumarate-FA ( Vitamins) 28-0.8 MG TABS Take 1 (one) tablet by mouth once daily 04/20/2022 Active gabapentin (Neurontin) 300 MG capsuleIndications: Restless leg Take 1 (one) capsule by mouth at bedtime 90 capsule 5 06/28/2022 Active Active Problems Problem Noted Date Diagnosed Date Chronic obstructive pulmonary disease 09/10/2021 CHRISTOPHER (obstructive sleep apnea) 09/10/2021 Gastroesophageal reflux disease without esophagi tis 09/10/2021 Class 3 severe obesity witho ut serious comorbidity with body mass index (BMI) of 50.0 to 59.9 in adult 09/10/2021 Numbness and tingling in both hands 09/10/2021 Carpal tunnel syndrome 09/10/2021 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 06/16/2020 Immunizations Name Administration Dates Next Due TDAP (7yrs+) 03/25/2016,10/12/2012 Family History Medical History Relation Name Comments Depression Mother Sleep Disorder - Other Sister Relation Name Status Comments Mother Sister Social History Tobacco Use Types Packs/Day Years Used Date Smoking Tobacco: Never Smokeless Tobacco: Never Tobacco Cessation:Counseling Given: No Alcohol Use Standard Drinks/Week Comments Yes 0 (1 standard drink = 0.6 oz pur e alcohol) PHQ-2 Answer Date Recorded PHQ2 TOTAL SCORE 0 10/30/2020 Sex and Gender Information Value Date Recorded Sex Assigned at Not on file Gender Identity Not on file Sexual Orientation Not on file Last Filed Vital Signs Vital Sign Reading Time Taken Comments Blood Pressure 145/96 06/28/2022 9:44 AM WIRE HARNESS ASSEMBLER Pulse 75 06/28/2022 9:44 AM WIRE HARNESS ASSEMBLER Temperature 36.1 C (97 F) 06/16/2020 1:18 PM WIRE HARNESS ASSEMBLER Respiratory Rate 16 06/16/2020 1:18 PM WIRE HARNESS ASSEMBLER Oxygen Saturation 98% 10/30/2020 7:31 AM CDT Inhaled Oxygen Concentration - - Weight 135.2 kg (298 lb) 06/28/2022 9:44 AM WIRE HARNESS ASSEMBLER Height 162.6 cm (5' 4 ) 06/28/2022 9:44 AM WIRE HARNESS ASSEMBLER Body Mass Index 51.15 06/28/2022 9:44 AM WIRE HARNESS ASSEMBLER Plan of Treatment Health Maintenance Due Date Last Done Comments PAP SMEAR 1986 HIV SCREENING 2001 HEPATITIS C SCREENING 03/04/2004 HEPATITIS B VACCINE (1 of 3 - 19+ 3-dose series) 2005 PNEUMOCOCCAL VACCINE (1 of 2 - PCV) 2005 COVID-19 VACCINE ( - 2023-2 5 season) 2024 INFLUENZA VACCINE (#1) 2024 DEPRESSION SCREENING 05/16/2024 DTAP/TDAP/TD VACCINES (3 - T d or Tdap) 03/25/2026 03/25/2016, 10/12/2012 ZOSTER VACCINE (1 of 2) 2036 HIB VACCINE Aged Out No longer eligi ble based on patient's age to complete this topic HPV VACCINE Aged Out No longer eligi ble based on patient's age to complete this topic MENINGOCOCCAL (Group B) VACCINE SHARED DECISION-MAKING Aged Out No longer eligible based on patient's age to complete this topic MENINGOCOCCAL GROUPS A/C/Y/W VACCINE Aged Out No longer eligible b ased on patient's age to complete this topic Care Teams Residence Hall Director Relationship Specialty Start Date End Date Martha Harry, REGINALD-TESTER ARMATURE OR FIELDS [address] [place] [phone] PCP - General 07/01/21
--- OUTSIDE RECORDS SUMMARY | 2024-08-16 11:01 | XMS_ITS | Encounter Summary ---
Author Organization [facility] Health Address [address] [facility] [place] [address] Care Team Providers Care Carnival Worker Name Role Phone Martha Harry Primary Care Provider +1- [phone] Reason for Visit * Reason Onset Date Comments MEDICATION REFILL 01/09/2022 Encounter Details Date Type Department Care Team (Late st Contact Info) Description 01/09/2022 Refill [facility] [address] [facility], [facility] [place] [phone] Sonia Yi MD [address] [place] [address] MEDICATION REFILL Social History Tobacco Use Types [...] breath documented in this encounter Care Teams Carnival Worker Relationship Specialty Start Date End Date Martha Harry APRN-CNP [facility] [place] [phone] PCP - General 07/01/21 documented as of this encounter
--- OUTSIDE RECORDS SUMMARY | 2024-08-16 11:01 | XMS_ITS | Encounter Summary ---
Author Organization [facility] Health Address [address] [facility] [place] [address] Care Team Providers Care Junior Linux Administrator Name Role Phone Martha Harry Primary Care Provider +1- [phone] Reason for Visit * Reason Onset Date Comments MEDICATION REFILL 10/05/2021 Encounter Details Date Type Department Care Team (Late st Contact Info) Description 10/05/2021 Refill [facility] [address] [facility], [facility] [place] [phone] Sonia Yi MD [address] [place] [address] MEDICATION REFILL Social History Tobacco Use Types [...] breath documented in this encounter Care Teams Junior Linux Administrator Relationship Specialty Start Date End Date Martha Harry APRN-CNP [facility] [place] [phone] PCP - General 07/01/21 documented as of this encounter
== END 2024-08-16 10:15 | disposition home or self-care (01) ==
PROVIDERS: PCP Family Medicine; Visit Provider Nurse Practitioner Family
DX: K76.0 Fatty (change of) liver, not elsewhere classified (principal); K80.20 Calculus of gallbladder without cholecystitis without obstruction
CPT/HCPCS: 76705

== ENCOUNTER 2024-11-26 07:24 | Outpatient (CLI) | payer OTHER, SELFPAY ==
--- NOTE | ~2024-11-26 | NM_ITS ---
Nuclear Medicine Procedure: Hepatobiliary Scan Clinical history: Right upper quadrant pain Interpretation: Following intravenous administration of 5.2 mCi. of technetium 99m Choletec, serial i mages obtained reveal prompt concentration by the liver which is normal in size and without any focal abnormalities. There is normal excretion from the liver, with prompt visualization of small bowel. Gallbladder not visualized at 1 hour imaging, nor at 4 hour delayed imaging. Impression: Nonvisualization of gallbladder is compatible with cystic duct obstruction. This is suspicious for ac umkumiut cholecystitis. Reviewed, dictated and finalized at location M. Impression: Nonvisualization of gallbladder is compatible with cystic duct obstruction. Thi s is suspicious for acute cholecystitis.
== END 2024-11-26 07:25 | disposition home or self-care (01) ==
PROVIDERS: PCP Family Medicine; Visit Provider Nurse Practitioner Family
DX: K80.20 Calculus of gallbladder without cholecystitis without obstruction (principal)
CPT/HCPCS: 78226; A9537

== ENCOUNTER 2024-11-29 09:54 | Outpatient (CLI) | payer OTHER, SELFPAY ==
[2024-11-29 10:24] LABS: Hematocrit 39.8 % (37.0-47.0); Hemoglobin 12.8 g/dL (12.0-15.0); Mean Corpuscular HGB Conc 32.2 g/dl (32-36); Mean Corpuscular Hemoglobin 28.0 pg (26-34); Mean Corpuscular Volume 87.1 fl (80-100); Platelet Count Result 347 k/mm3 (150-375); Red Blood Count 4.57 M/mm3 (4.2-5.4); White Blood Count 7.5 K/mm3 (4.5-10.0)
[2024-11-29 10:54] LABS: Alanine Aminotransferase 38 U/L (6-35); Albumin Level 4.2 g/dL (3.5-5.1); Alkaline Phosphatase 60 U/L (38-126); Anion Gap 10 mmol/L (4-12); Aspartate Amino Transferase 35 U/L (14-36); Bilirubin,Total 0.6 mg/dL (0.2-1.3); Blood Urea Nitrogen 13 mg/dL (7-17); Calcium 9.5 mg/dL (8.4-10.2); Carbon Dioxide 24 mmol/L (22-30); Chloride 105 mmol/L (98-107); Estimated Glomerular Filt Rate > 60; Glucose 93 mg/dL (65-110); Lipase 38 U/L (23-300); Potassium 4.4 mmol/L (3.4-5.0); Sodium 139 mmol/L (137-145); Total Protein 8.8 g/dL (6.3-8.2)
== END 2024-11-29 09:55 | disposition home or self-care (01) ==
LOC: ANHLAB 09:55
PROVIDERS: PCP Family Medicine; Visit Provider Nurse Practitioner Family
DX: K80.20 Calculus of gallbladder without cholecystitis without obstruction (principal); K83.09 Other cholangitis
CPT/HCPCS: 36415; 80048; 80076; 83690; 85027

== ENCOUNTER 2024-12-06 00:45 | Day surgery (SDC) | payer OTHER, SELFPAY ==
[2024-12-05 11:03] VITALS: BMI 53.6
--- NOTE | 2024-12-05 11:04 | PC.NURSE ---
Report to the Outpatient Waiting Room, entrance under the green pavilion located off [facility], at time _0830_ on date _35-22-1529_. Planned Procedure Time: __.? Time changes happen often and if your time is changed the preop area will call you the afternoon before. - You and your visitor will be asked to self-screen and do not enter if you have any COVID symptoms. Please call surgeon if you need to reschedule. - A mask is optional within the hospital at this time. Patients may have clear liquids (water, carbonated beverages, clear teas, apple juice) until 3 hours prior to surgery with a maximum of 20 ounces. - No food from midnight until time of surgery and no smoking, or chewing tobacco (or any form of nicotine). No chewing gum, candy or mints. Take only the following medications with a SIP of water on the morning of surgery: ____Gabapentin DO NOT STOP ANY OF YOUR OTHER PRESCRIPTION MEDICATIONS PRIOR TO SURGERY EXCEPT THE FOLLOWING Hold all vitamins and supplements for 3 days per anesthesiologist. Medications to discontinue per physician Date to take last dose Please no make-up, nail honduran, hairspray, perfume, deodorant, or body powder the day of surgery.? No jewelry (including any body piercings) or valuables the day of surgery, leave them at home.? Please take a shower or bath the night before, or the morning of, surgery with an antibacterial soap.? Wear comfortable, loose fitting clothing. - Jewelry must be removed prior to entering the operating room.? Rings and piercings that are not removed may be cut off. - The hospital will not accept responsibility for valuables.? - Please leave all valuables, including medications, at home the day of surgery. If you are going home after surgery, a licensed tank wagon driver must drive you home.? - NO public transportation without another adult if you receive anesthesia. - We recommend that an adult stay with you for 24 hours following discharge. - We also recommend that you do not drive, make important decision, drink alcoholic beverages, or take any drugs that were not prescribed by your health care provider for at least 24 hours after your discharge time. Follow any additional instructions given to you from your surgeon. Telephone instructions given to ___Mckenna__and asked if any additional questions and then verbalized understanding. Patient advised to call surgeon office or pre surgery nurse liaison [phone] if any additional questions.
[2024-12-06] VITALS (9 sets, daily range): BP systolic 130–158; BP diastolic 74–108; PULSE 58–84; RESP 14–20; TEMP 36.1–36.2; O2SAT 97–100; BMI 53.1
[2024-12-06] MEDS: KETOROLAC 15 MG/ML VIAL (*BKC) IV PUSH (09:00)
[2024-12-06] MEDS: LACTATED RINGERS 1,000 ML 30 ML IV CONT ×2 (09:00→12:32)
[2024-12-06] MEDS: ACETAMINOPHEN 500 MG TABLET 1000 MG PO (09:00)
[2024-12-06 09:39] LABS: Amylase 75 U/L (30-110)
--- NOTE | 2024-12-06 11:19 | WPDANESEPPF ---
Anes - Initial Pre Proc Eval Procedure: Operation Date: 12/06/24 10:30 Proposed Procedures p Laparoscopic Cholecystectomy - Racheal Fenton MD Date/Time: 12/06/24 11:19 Surgeon: Racheal Fenton MD Pre Op Diagnosis: chronic cholecystitis Patient Data Age: 39 Gender: F Height: 1.57 m Weight: 131.8 kg Last Vital Signs Temp 97.2 F L 12/06/24 09:32 Pulse 60 12/06/24 09:32 BP 150/108 H 12/06/24 09:32 Pulse Ox 100 12/06/24 09:32 O2 Del Method Room Air 12/06/24 09:32 Allergies Allergy/AdvReac Type Severity Reaction Status Date / Time strawberry Allergy Unknown Anaphylactic Verified 12/06/24 09:11 Shock bee venom protein (honey bee) Allergy Anaphylactic Verified 12/06/24 09:11 Shock codeine AdvReac Intermediate Nausea and Verified 12/06/24 09:11 Vomiting aspirin AdvReac Unknown Gastrointestinal Verified 12/06/24 09:11 Upset Home Medications ?Medication ?Instructions ?Recorded ?Confirmed ?Type acyclovir 400 mg tablet 400 mg PO DAILY #90 tabs 07/17/24 12/06/24 Rx famotidine 20 mg tablet 20 mg PO DAILY #90 tabs 07/17/24 12/06/24 Rx gabapentin 300 mg capsule 300 mg PO BID #180 caps 07/17/24 12/06/24 Rx omeprazole 40 mg capsule,delayed 40 mg PO DAILY #90 caps 07/17/24 12/06/24 Rx release Laboratory Tests 12/06/24 09:06 Amylase 75 U/L (30-110) Patient hx anesthesia problems: none Family hx anesthesia problems: none Results Review: All pre-operative results and documents have been reviewed as part of the pre-operative evaluation. [facility] Past Medical History Medical History Allergies IBS (irritable bowel syndrome) GERD (gastroesophageal reflux disease) Arthritis Anxiety Gastrointestinal ulcer Bronchitis Asthma Surgical History Surgical History S/P nerve repair Ulna H/O: Family History Family History Mother Asthma Alcoholism Cancer Depression Anxiety Diabetes mellitus Father Anxiety Depression Sibling Depression Anxiety Other No significant family history Social History Social History Social History: Caffeine-daily Smoking status: Never smoker Alcohol intake: never Substance use: current Substance use type: marijuana Other substance usage details: Daily Do You Feel Safe in your Home?: Yes Lack of Transportation: No Lack of Food: Never True Current Housing: I Have Housing Concerned About Future Housing: No Difficulty Paying Gas/Electric Bills: No Difficulty Paying for Meds: No Currently Unemployed: No Education: Decline to Answer Difficulty w/ Childcare or Family Care: No Living arrangements: with family Occupation/Education: occupation Additional occupation/education comments: self employed Gender identity (if verbalized by the patient): Female Sexual Orientation (if Verbalized by the Patient): Lesbian, Edmondson, or Homosexual Spiritual care concerns: No Agree to blood products: Yes Anes - Eval Final PreProcedure Day of Procedure 12/06/24 11:19 Patient weight: morbidly obese Lungs: normal air movement Airway: Mallampati scale class II Neurological: alert and oriented Last oral intake: >/= 8 hours ASA classification: III Emergent: no Anesthetic plan: proceed Anesthesia type and monitoring: general and standard monitoring Results Review: All pre-operative results and documents have been reviewed as part of the pre-operative evaluation. Morbid obesity, cannabis smoker daily, CHRISTOPHER but noncompliant w CPAP. Informed Consent: The patient's anesthetic plan and its attendant risks and benefits were discussed with the patient/family/POA. Questions were solicited and answers provided to the satisfaction of the patient/family/POA.
--- NOTE | 2024-12-06 11:29 | WPDHPUPDATE1 ---
History and Physical Update Update Date/Time: 12/06/24 11:29 History and Physical has been reviewed, including an updated exam of the patient. There are NO changes in the patient's condition. Risks, benefits, and alternatives have been discussed and questions answered. Patient agrees to proceed with procedure.
[2024-12-06] MEDS: ceFAZolin 3 GM/D5W 100 ML 100 ML IVPB (11:32)
[2024-12-06] MEDS: BUPIVACAINE/EPINEPHRINE 0.5% 50 ML VIAL 30 ML INFILTRATE (11:54)
--- NOTE | 2024-12-06 12:20 | S_PTH ---
PATIENT: Mckenna Laura LOC: [facility] U#:[id number] AGE/SX: 39/F ROOM: RE12/06/[address]: Racheal Fenton MD : 1985 BED: DIS: 12/06/2024 SPEC #: [id number] RECD: 12/06/24 13:00 STATUS: GEN ANDERSON #: [id number] JACIEL: 12/06/24 12:[address]: Racheal Fenton DEPT: [facility] Surgical RECD BY: Connie Mcdaniels ENTERED: 12/06/24 13:00 SP TYPE: Surgical OTHR DR: STAMP MACHINE SERVICER PHYSICIAN Tissues: A - Gallbladder Procedures: Hematoxylin and Eosin Stain Gross and Microscopic Level 3
--- NOTE | 2024-12-06 12:29 | W.PM.PROC2 ---
Procedure Note - Detailed Date of Procedure 12/06/24 Pre-op Diagnosis acute cholecystitis, cholelithiasis Post-op Diagnosis Other ( acute hydrops cholecystitis, cholelithiasis) Procedure Performed laparoscopic cholecystectomy Surgeon Racheal Fenton MD Anesthesia General and Local Indications 39-year-old female presenting to the office complaining of severe upper abdominal pain, poor appetite, nausea, bloating. Workup, including imaging, significant for cholecystitis, cholelithiasis. Findings Acute hydrops cholecystitis, impacted cholelithiasis Description of Procedure The patient was taken to the operating room placed in the supine position. After adequate induction of general anesthesia, the patient was prepped and draped in normal sterile fashion. A time-out was then performed to verify the patient's identity as well as the procedure being performed. I then made a 5 mm incision in the infraumbilical region. Through this, a Veress needle was placed into the peritoneal cavity and CO2 gas was then insufflated. After adequate pneumoperitoneum was achieved, the Veress needle was removed and a 5 mm optiview trocar was placed through this incision under direct visualization. I then placed the laparoscope through this trocar site and under direct visualization placed a further 12 mm subxiphoid port as well as 2 additional 5 mm ports in the right upper abdomen. The gallbladder was then identified and was noted to be severely inflamed, distended, and full of impacted gallstones. Given the amount of inflammation and distention, we were unable to grasp the gallbladder for retraction. The gallbladder was subsequently decompressed. Hydrops cholecystitis was noted at this point. After decompression, I was able to place a grasper at the dome of the gallbladder and this was retracted anterior and cephalad up over the liver. A 2nd retractor was then placed at the infundibulum and retracted laterally, this allowed visualization of the triangle of Calot. I then was able to visualize the cystic duct in its entirety from its proximal insertion into the gallbladder, to its distal junction with the common hepatic/common bile duct junction. At this point, I carefully skeletonized the proximal cystic duct with the [place] dissector. I then clipped and transected the proximal cystic duct. Next I visualized the cystic artery. Again the artery was skeletonized, clipped, and transected. I then used the Bovie cautery to take down the peritoneal attachments of the gallbladder off the liver bed. This was somewhat difficult given the amount of inflammation in the posterior space. Once the gallbladder specimen was completely detached, an endo-pouch was placed through the 12 mm port site. I then placed the gallbladder specimen into the Endo pouch and removed the endo-pouch from the 12 mm port site. The specimen will now be sent to pathology for further review. I then copiously irrigated the right upper quadrant. Hemostasis was noted in the liver bed, the clips were noted to be in good position on both the cystic duct stump and the cystic artery stump. No other pathology was noted in the right upper quadrant. I then moved the laparoscope to the subxiphoid port. No iatrogenic injury or other pathology was noted in the lower abdomen. I then closed the 12 mm trocar site under direct visualization using the Emmanuel cone and 0 Vicryl suture. At this point, the abdomen was desufflated and all ports removed. All port sites were then closed with 4.O Monocryl subcuticular sutures. Dermabond was placed on each incision. The patient tolerated the procedure well, was extubated in the operating room postoperative and will be transferred to the recovery room in stable condition Estimated Blood Loss 10 Pathology Yes Complications No immediate complications Condition Stable Disposition PACU [facility] Billing Surgery - Charge Forward: Surgery Billing
[2024-12-06] MEDS: ONDANSETRON INJ 4 MG/2 ML VIAL IV PUSH (13:02)
== END 2024-12-06 14:25 | disposition home or self-care (01) ==
PROVIDERS: Referring Provider Nurse Practitioner Family; Visit Provider Surgery
PROC: 0FT44ZZ Resection of Gallbladder, Percutaneous Endoscopic Approach (ICD-10-PCS; CPT 47562; principal; 2024-12-06 10:30)
DX: K80.00 Calculus of gallbladder with acute cholecystitis without obstruction (principal); K21.9 Gastro-esophageal reflux disease without esophagitis; K58.9 Irritable bowel syndrome, unspecified; F41.9 Anxiety disorder, unspecified; J45.909 Unspecified asthma, uncomplicated; G47.33 Obstructive sleep apnea (adult) (pediatric); M19.90 Unspecified osteoarthritis, unspecified site; F12.90 Cannabis use, unspecified, uncomplicated; E66.01 Morbid (severe) obesity due to excess calories; Z68.43 Body mass index [BMI] 50.0-59.9, adult; Z98.890 Other specified postprocedural states; Z87.11 Personal history of peptic ulcer disease; Z80.9 Family history of malignant neoplasm, unspecified
CPT/HCPCS: 47562; 36415; 82150; 88304; A9270; J0690; J1100; J1200; J1885; J2250; J2405; J2704; J3010; J7120